=== PATIENT | female | born 1985 | race Caucasian/White ===

== ENCOUNTER → 2020-12-28 14:00 | Observation (INO) ==
[2020-12-28 12:46] LABS: Bilirubin,Urine Negative (Negative); Blood,Urine Negative (Negative); Clarity,Urine Clear (Clear); Color,Urine Light-Yellow (Yellow); Glucose,Urine (UA) Normal (Normal); Ketones,Urine Negative (Negative); Leukocyte Esterase,Urine Negative (Negative); Nitrite,Urine Negative (Negative); PH,Urine 5.5 pH Units (5.0-8.0); Protein,Urine Negative (Neg-Trace); Specific Gravity,Urine 1.022 (1.010-1.025); Urobilinogen,Urine Normal (Normal)
[2020-12-28 14:15] LABS: Candida DNA Not Detected (Not Detect); Gardnerella DNA Not Detected (Not Detect); Trichomonas DNA Not Detected (Not Detect)
== END | disposition home or self-care (01) ==
LOC: 1NENULAB
PROVIDERS: ADMIT Advanced Practice Midwife; ATTEND Advanced Practice Midwife

== ENCOUNTER 2021-02-02 03:06 | Observation (INO) ==
[2021-02-02 03:58] LABS: Bacteria,Urine Few per hpf (None-Few); Bilirubin,Urine Negative (Negative); Blood,Urine Negative (Negative); Clarity,Urine Turbid (Clear); Color,Urine Yellow (Yellow); Glucose,Urine (UA) Normal (Normal); Ketones,Urine 10 mg/dL (Negative); Leukocyte Esterase,Urine Negative (Negative); Mucus,Urine Few per lpf (None-Few); Nitrite,Urine Negative (Negative); Protein,Urine Trace mg/dL (Neg-Trace); RBC,Urine 0-3 per hpf (0-3); Squamous Epithelial Cell,Urine Few per hpf (None-Few); Urobilinogen,Urine Normal (Normal); WBC,Urine 0-3 per hpf (0-3)
== END 2021-02-02 04:25 | disposition home or self-care (01) ==
LOC: 1NENULAB
PROVIDERS: ADMIT Advanced Practice Midwife; ATTEND Advanced Practice Midwife

== ENCOUNTER 2021-04-09 22:40 | Inpatient (IN) ==
[~2021-04-09 22:40] MED LIST: *HR* Nalbuphine 10 MG/ML AMPUL IV PRN; Famotidine 20 MG/2 ML VIAL IVP PRN; Lidocaine 1% 20 ML MDV INFILT PRN; Metoclopramide 10 MG/2 ML VIAL IVP PRN; Naloxone 0.4 MG/ML INJ IVP PRN; Ondansetron 4 MG/2 ML VIAL IVP PRN
[2021-04-09] MEDS ORDERED: Oxytocin 20 units/ LR 1000 mL 20 UNIT/1,000 ML BAG IVC SCH (22:45)
[2021-04-09] MEDS: Ringers Solution, Lactated 1,000 ML IVC SCH (23:22)
[2021-04-09] MEDS ORDERED: EPHEDrine 50 MG/ML VIAL IVP PRN (23:24)
[2021-04-09 23:30] LABS: Basophils # 0.1 K/mcL (0.0-0.2); Basophils % 0.5 %; Eosinophils # 0.1 K/mcL (0.0-0.6); Eosinophils % 0.5 %; Hematocrit 31.4 % (35.3-44.9); Hemoglobin 10.4 g/dL (11.5-15.4); Immature Granulocytes % 1.5 % (0-4); Lymphocytes # 2.2 K/mcL (0.6-4.6); Lymphocytes % 15.2 %; Mean Corpuscular HGB Conc 33.1 g/dL (31.6-35.5); Mean Corpuscular Hemoglobin 29.2 pg (28.0-33.3); Mean Corpuscular Volume 88.2 fL (83.0-100.0); Mean Platelet Volume 10.7 fL (9.4-12.4); Monocytes # 0.8 K/mcL (0.0-1.3); Monocytes % 5.7 %; Neutrophils # 11.2 K/mcL (1.6-8.9); Platelet Count 283 K/mcL (140-400); Red Blood Count 3.56 M/mcL (3.82-4.97); Red Cell Distribution Width 12.2 % (11.5-14.5); Segmented Neutrophils % 76.6 %; White Blood Count 14.7 K/mcL (4.3-11.1)
[2021-04-09] MEDS ORDERED: Epidural Premix (fent/bupiv) 110 ML EP SCH (23:30)
[2021-04-09 23:35] LABS: Amphetamine Screen,Urine Negative ng/mL (Cutoff=1000); Barbiturate Screen,Urine Negative ng/mL (Cutoff=200); Benzodiazepines Screen,Urine Negative ng/mL (Cutoff=200); Cannabinoid Screen,Urine Negative ng/mL (Cutoff = 50); Cocaine Screen,Urine Negative ng/mL (Cutoff= 300); Opiate Screen,Urine Negative ng/mL (Cutoff=300); Phencyclidine Screen,Urine Negative ng/mL (Cutoff=25)
[2021-04-10 00:05] LABS: Influenza A PCR Negative (Negative); Influenza B PCR Negative (Negative); Resp. Syncytial Virus PCR Negative (Negative)
[2021-04-10 00:06] LABS: SARS-CoV-2 by PCR (In House) Negative (Negative)
[2021-04-10] MEDS: Ringers Solution, Lactated 1,000 ML IVC SCH ×2 (06:48→14:47)
[2021-04-10] MEDS ORDERED: Methylergonovine 0.2 MG/ML AMPUL IM ONE (10:14)
[2021-04-10] MEDS ORDERED: *HR* FentaNYL (PF) 100 MCG/2 ML VIAL ONE (16:07)
[2021-04-10] MEDS ORDERED: Bupivacaine-MPF 0.25% 10 ML VIAL ONE (16:07)
[2021-04-10] MEDS ORDERED: CeFAZolin 2,000 MG/120 ML BAG IVPB ONE (18:26)
[2021-04-10] MEDS ORDERED: ROPIVACAINE/PF/NS 0.25% 1 EACH SYRINGE INTRAART ONE (20:54)
[2021-04-10] MEDS ORDERED: Ketorolac 30 MG/ML VIAL IVP PRN (21:30)
[2021-04-10] MEDS ORDERED: *HR* HYDROmorphone PF 0.5 MG/0.5 ML SYRINGE IVP PRN (21:30)
[2021-04-10] MEDS ORDERED: Simethicone 80 MG TAB.CHEW PO PRN (23:12)
[2021-04-10] MEDS ORDERED: Ondansetron 4 MG/2 ML VIAL IVP PRN (23:12)
[2021-04-10] MEDS ORDERED: Metoclopramide 10 MG/2 ML VIAL IVP PRN (23:12)
[2021-04-10] MEDS ORDERED: Acetaminophen 325 MG TABLET PO SCH (23:12)
[2021-04-10] MEDS ORDERED: Ringers Solution, Lactated 1,000 ML IVC SCH (23:12)
[2021-04-10] MEDS ORDERED: Rho Immune Globulin 1,500 UNIT SYRINGE IM ONE (23:12)
[2021-04-10] MEDS ORDERED: Oxytocin 20 units/ LR 1000 mL 20 UNIT/1,000 ML BAG IVC SCH (23:12)
[2021-04-10] MEDS ORDERED: *HR* HYDROmorphone PCA *PREMADE* 20 MG/1MG/ML (20mL) PCA VIAL IVC PRN (23:13)
[2021-04-11] MEDS ORDERED: 0.9 % Sodium Chloride 500 ML ONE (00:05)
[2021-04-11] MEDS: Ibuprofen 600 MG TABLET PO SCH ×4 (01:08→19:55)
[2021-04-11 04:58] LABS: Basophils # 0.1 K/mcL (0.0-0.2); Basophils % 0.3 %; Eosinophils # 0.1 K/mcL (0.0-0.6); Eosinophils % 0.3 %; Hematocrit 26.5 % (35.3-44.9); Hemoglobin 8.9 g/dL (11.5-15.4); Immature Granulocytes % 0.8 % (0-4); Lymphocytes # 1.9 K/mcL (0.6-4.6); Lymphocytes % 9.4 %; Mean Corpuscular HGB Conc 33.6 g/dL (31.6-35.5); Mean Corpuscular Hemoglobin 29.5 pg (28.0-33.3); Mean Corpuscular Volume 87.7 fL (83.0-100.0); Mean Platelet Volume 10.8 fL (9.4-12.4); Monocytes # 0.8 K/mcL (0.0-1.3); Monocytes % 4.1 %; Neutrophils # 17.2 K/mcL (1.6-8.9); Platelet Count 273 K/mcL (140-400); Red Blood Count 3.02 M/mcL (3.82-4.97); Red Cell Distribution Width 12.3 % (11.5-14.5); Segmented Neutrophils % 85.1 %; White Blood Count 20.2 K/mcL (4.3-11.1)
[2021-04-11] MEDS: Prenatal Vit/FA 1 EACH TABLET PO SCH (08:41)
[2021-04-11] MEDS: metroNIDAZOLE 500 MG TABLET PO SCH ×3 (08:41→19:56)
[2021-04-11] MEDS: cephALEXin 500 MG CAPSULE PO SCH ×3 (08:41→19:56)
[2021-04-11] MEDS ORDERED: NON-FORMULARY MEDICATION 1 EACH EACH (Prenat 115/Iron Fum/Folic/Dss [Prenatal 19 Tablet] 1 PO SCH (09:00)
[2021-04-11] MEDS: Acetaminophen 325 MG TABLET PO SCH ×3 (11:21→18:25)
[2021-04-11] MEDS: *HR* OxyCODONE Immed Rel 5 MG TABLET PO PRN ×3 (11:31→19:56)
[2021-04-11 19:47] VITALS: O2SAT 97
[2021-04-11] MEDS ORDERED: Lanolin 7 G OINT...G. TP PRN (23:17)
[2021-04-12] MEDS: *HR* OxyCODONE Immed Rel 5 MG TABLET PO PRN ×3 (00:14→08:00)
[2021-04-12] MEDS: Acetaminophen 325 MG TABLET PO SCH ×2 (00:14→06:18)
[2021-04-12] MEDS: Ibuprofen 600 MG TABLET PO SCH ×2 (01:50→08:00)
[2021-04-12] MEDS: Prenatal Vit/FA 1 EACH TABLET PO SCH (08:00)
[2021-04-12] MEDS: cephALEXin 500 MG CAPSULE PO SCH (08:00)
[2021-04-12] MEDS: metroNIDAZOLE 500 MG TABLET PO SCH (08:00)
[2021-04-12 08:27] VITALS: BP 97/61; PULSE 75; TEMP 97.6
== END 2021-04-12 10:15 | disposition home or self-care (01) | DRG 539 ==
LOC: 1NENULAB → 1NENUOBS 04-10 23:44
PROVIDERS: ADMIT Obstetrics & Gynecology; ATTEND Obstetrics & Gynecology